=== PATIENT | female | born 1985 | race Caucasian/White ===

== ENCOUNTER 2017-09-17 23:12 | Observation (INO) | payer MEDICAID ==
--- NOTE | 2017-09-18 00:40 | C.PDOC ---
History Of Present Illness <Gayathri Vazquez - Last Filed: 09/18/17 06:43> <Nithin Murcia N - Last Filed: 09/18/17 06:54> 32 y/o female with no sig pmx c/o pain and swelling to mons pubis and to perirectal area x 4 days. no fever or chills. no prior hx of similar pain. ( Gayathri Vazquez) History Per: Patient History/Exam Limitations: no limitations Onset/Duration Of Symptoms: Days (4) Current Symptoms Are (Timing): Worse Quality Of Symptoms: Painful, Swollen. denies: Draining Severity: Moderate <Gayathri Vazquez - Last Filed: 09/18/17 06:43> <Nithin Murcia N - Last Filed: 09/18/17 06:54> Time Seen by Provider: 09/18/17 00:15 Chief Complaint (Nursing): Abnormal Skin Integrity Past Medical History Reviewed: Historical Data, Nursing Documentation, Vital Signs - Medical History PMH: No Chronic Diseases Family History: States: Unknown Family Hx - Social History Hx Alcohol Use: No Hx Substance Use: No <Gayathri Vazquez - Last Filed: 09/18/17 06:43> Vital Signs: Last Vital Signs Temp 97.9 F 09/18/17 06:46 Pulse 76 09/18/17 06:46 Resp 18 09/18/17 06:46 BP 102/70 09/18/17 06:46 Pulse Ox 96 09/18/17 06:46 Review Of Systems Constitutional: Negative for: Fever, Chills Gastrointestinal: Positive for: Rectal Pain. Negative for: Nausea, Vomiting, Abdominal Pain Genitourinary: Positive for: Pelvic Pain (mons pubis). Negative for: Dysuria Skin: Positive for: Other (early abscess mons) Neurological: Negative for: Weakness, Numbness <Gayathri Vazquez - Last Filed: 09/18/17 06:43> Physical Exam - Physical Exam Appears: Non-toxic, No Acute Distress Skin: Warm, Dry Head: Atraumatic, Normacephalic Gastrointestinal/Abdominal: Bowel Sounds, Soft, No Tenderness Rectal: Other (tender small perirectal abscess 5 oclock position, no discharge. ) Pelvic: Other (approx 4 cm x 5 cm warm indurated tender area with few satellite blisters, not fluctuant. ) Neurological/Psych: Oriented x3, Normal Speech, Normal Cognition <Gayathri Vazquez - Last Filed: 09/18/17 06:43> ED Course And Treatment - Laboratory Results Result Diagrams: 09/18/17 01:03 09/18/17 01:03 O2 Sat by Pulse Oximetry: 98 - CT Scan/US CT abdomen/pelvis Other Rad Studies (CT/US): Interpreted By Me, Read By Radiologist CT/US Interpretation: EXAM: CT Abdomen and Pelvis With Intravenous Contrast. EXAM DATE/TIME: 09/18/17 (1:46am). CLINICAL HISTORY: 32 year old female with abdominal pain. Evaluate perirectal abscess. TECHNIQUE: Axial computed tomography images of the abdomen and pelvis with intravenous contrast. All CT scans at this facility use one or more dose reduction techniques, viz.: automated exposure. control; ma/kV adjustment per patient size (including targeted exams where dose is matched to. indication; i.e. head); or iterative reconstruction technique. CONTRAST: 100 ml of Visipaque 320 administered intravenously. COMPARISON: No relevant prior studies available. FINDINGS: Lower thorax: No acute findings. No pleural effusions. ABDOMEN: Liver: Normal. No solid mass. Gallbladder and bile ducts: Normal. No calcified stones. No ductal dilatation. Pancreas: Normal. No ductal dilatation. Spleen: Normal. No splenomegaly. Adrenals: Normal. No mass. Kidneys and ureters: Normal. No hydronephrosis. Stomach and bowel: Normal. No bowel obstruction. No mucosal thickening. No definite perirectal abscess is observed. Appendix: No findings to suggest acute appendicitis. PELVIS: Bladder: Distended urinary bladder. No mass nor stones. Reproductive: Area of hypodensity (17 mm size) in the upper portion of the uterus (axial image #7). Small amount of air in the cervix. ABDOMEN and PELVIS: Intraperitoneal space: Normal. No free air. No significant fluid collection. Bones/joints: No acute fracture nor dislocation. Soft tissues: Unremarkable. Vasculature: Normal. No abdominal aortic aneurysm. Lymph nodes: Normal. No enlarged lymph nodes. IMPRESSION: No acute findings. Possible upper uterine body fibroid (17 mm size). No acute bowel pathology. No definite perirectal abscess is observed. <Gayathri Vazquez - Last Filed: 09/18/17 06:43> - Laboratory Results Result Diagrams: 09/18/17 01:03 09/18/17 01:03 <Nithin Murcia - Last Filed: 09/18/17 06:54> Medical Decision Making <Gayathri Vazquez - Last Filed: 09/18/17 06:43> <Nithin Murcia - Last Filed: 09/18/17 06:54> Medical Decision Makin:00am surgical attendant paged. Will evaluate patient bedside. discussed with Dr Medina, admit to his service, with surgical consult/ (Gayathri Vazquez) I agree with management, pt with new onset newly diagnosed diabetes. Pt with no anion gap but has elevated hyperglycemia. Infection- cellulitis as well as perianal abscess. admitted to medicine with surgery on consult. (Nithin Murcia) Disposition Discussed With : Kobe Medina - Disposition Disposition Time: 06:16 <Gayathri Vazquez - Last Filed: 09/18/17 06:43> <Nithin uMrcia - Last Filed: 09/18/17 06:54> - Disposition Disposition: HOSPITALIZED Condition: GOOD - Clinical Impression Clinical Impression: Fabiola-rectal abscess, Cellulitis of pubic region, Pelvic abscess, Diabetes mellitus, new onset
[2017-09-18 01:07] LABS: BASO # 0.1 K/uL (0.0-0.2); BASO % 0.7 % (0.0-2.0); EOS # 0.1 K/uL (0.0-0.7); EOS % 1.5 % (0.0-4.0); HEMOGLOBIN 13.4 g/dL (11.0-16.0); LYMPH # 2.8 K/uL (1.0-4.3); LYMPH % 36.5 % (20.0-40.0); MEAN CELL VOLUME 85.3 fL (81.0-99.0); MEAN CORPUSCULAR HEMOGLOBIN 30.5 pg (27.0-31.0); MEAN CORPUSCULAR HGB CONC 35.8 g/dL (33.0-37.0); MONO # 0.5 K/uL (0.0-0.8); NEUT # 4.2 K/uL (1.8-7.0); NEUT % 55.3 % (50.0-75.0); RBC 4.38 Mil/uL (3.80-5.20); RED CELL DISTRIBUTION WIDTH 12.6 % (11.5-14.5); WHITE BLOOD COUNT 7.6 K/uL (4.8-10.8)
[2017-09-18 01:24] LABS: ALB/GLOB RATIO 1.2 (1.0-2.1); ALT/SGPT 21 U/L (9-52); AST/SGOT 14 U/L (14-36); BLOOD UREA NITROGEN 11 mg/dL (7-17); CALCIUM 8.6 mg/dl (8.6-10.4); GFR AFRICAN-AMERICAN > 60; GFR NON-AFRICAN AMERICAN > 60
[2017-09-18] MEDS ORDERED: Oxycodone/Acetaminophen 5/325 mg Tab PO STA (01:52)
[2017-09-18 01:56] LABS: SQUAMOUS EPITHIAL 9 /hpf (0-5); URINE BILIRUBIN NEGATIVE (NEGATIVE); URINE BLOOD NEGATIVE (NEGATIVE); URINE CLARITY Hazy (Clear); URINE COLOR Straw (YELLOW); URINE GLUCOSE (UA) 3+ mg/dL (Normal); URINE LEUKOCYTE ESTERASE NEG Leu/uL (Negative); URINE PROTEIN NEGATIVE (NEGATIVE); URINE UROBILINOGEN NORMAL mg/dL (0.2-1.0)
[2017-09-18] MEDS ORDERED: Sodium Chloride 0.9% 1,000 ML IV SCH (02:00)
[2017-09-18] MEDS ORDERED: Sodium Chloride 0.9% 1,000 ML ONE (02:01)
[2017-09-18] MEDS ORDERED: Oxycodone/Acetaminophen 5/325 mg Tab ONE (02:01)
[2017-09-18] MEDS ORDERED: Sodium Chloride 0.9% 1,000 ML IV ONE ×2 (02:41→03:25)
[2017-09-18] MEDS ORDERED: Iodixanol 320 MG/ML 100 ML BOTTLE IV ONE (02:53)
[2017-09-18] MEDS ORDERED: Clindamycin 600mg/50ml D5W 600 MG/50 ML VIAL IVPB SCH ×2 (06:00)
[2017-09-18] MEDS ORDERED: Clindamycin 600mg/50ml D5W 600 MG/50 ML VIAL IVPB ONE (06:36)
[2017-09-18] MEDS ORDERED: Clindamycin 600mg/50ml NS 600 MG/50 ML BAG IVPB ONE (06:40)
[2017-09-18] MEDS: Lactated Ringer's 1,000 ML IV SCH ×2 (07:15→17:09)
[2017-09-18] MEDS ORDERED: Lactated Ringer's 1,000 ML ONE (07:16)
[2017-09-18] MEDS ORDERED: Tmp-Smz 800 mg-160 mg DS Tab PO SCH (08:00)
[2017-09-18] MEDS: (Novolin R) Insulin Human Regular 100 units/ml vial SC SCH ×4 (08:08→22:04)
[2017-09-18] MEDS ORDERED: (Novolin R) Insulin Human Regular 100 units/ml vial ONE ×3 (08:08→11:50)
--- NOTE | 2017-09-18 08:22 | CP.PCM.HP ---
<Kenton Buck - Last Filed: 09/18/17 09:29> History of Present Illness - History of Present Illness History of Present Illness: 32 year old [place] female with no reported past medical history presents to the ED complaining of pubic and perirectal pain started 4 days ago. Patient noticed a small pimple in her rectal region about 1 week ago. She did not think much of it and it eventually bursted two days after. Patient began to notice another pimple start to form in the pubic region with the similar size. Both rectal and pubic regions started to become painful 4 days ago. Patient does not take any medication for the pain. No prior history of the same. An hour prior to coming to the ED, patient had a large [place] all by herself. Patient denies having fever, chills, dizziness, shortness of breath, chest pain, nausea , vomiting, diarrhea, or urinary complaints. Rodney Jaun: [phone] PMD: none PMHx: denies PSHx: none Hospitalization: none Allergy: NKDA Social Hx: denies tobacco, alcohol or other drug use. Leaves at home with and parents. Currently unempolyed Family Hx: non-contributory Home meds: none Present on Admission - Present on Admission Any Indicators Present on Admission: No Review of Systems - Review of Systems All systems: reviewed and no additional remarkable complaints except - Constitutional Constitutional: As Per HPI. absent: Anorexia, Chills, Fatigue, Fever - EENT Eyes: As Per HPI. absent: Blind Spots, Blurred Vision, Decreased Night Vision Ears: As Per HPI. absent: Decreased Hearing, Disequilibrium, Dizziness Nose/Mouth/Throat: As Per HPI. absent: Epistaxis, Nasal Congestion, Nasal Obstruction - Breasts Breasts: As Per HPI - Cardiovascular Cardiovascular: As Per HPI. absent: Chest Pain, Chest Pain at Rest, Dyspnea, Edema, Leg Edema, Palpitations - Respiratory Respiratory: As Per HPI. absent: Cough, Dyspnea, Wheezing - Gastrointestinal Gastrointestinal: As Per HPI. absent: Abdominal Pain, Nausea, Vomiting - Genitourinary Genitourinary: As Per HPI. absent: Difficulty Urinating, Dysuria, Hematuria - Reproductive: Female Reproductive:Female: As Per HPI - Menstruation Menstruation: As Per HPI - Musculoskeletal Musculoskeletal: As Per HPI - Integumentary Integumentary: As Per HPI, Furuncle (pubic and rectal ), Swelling - Neurological Neurological: As Per HPI. absent: Dizziness, Numbness, Syncope, Tingling - Psychiatric Psychiatric: As Per HPI. absent: Anxiety, Confusion, Depression - Endocrine Endocrine: As Per HPI. absent: Polydipsia, Polyphagia, Polyuria - Hematologic/Lymphatic Hematologic: As Per HPI Past Patient History - Past Social History Smoking Status: Never Smoked - PSYCHIATRIC Hx Substance Use: No - SURGICAL HISTORY Hx Surgeries: No Meds Allergies/Adverse Reactions: Allergies Allergy/AdvReac Type Severity Reaction Status Date / Time No Known Allergies Allergy Verified 09/17/17 23:52 Physical Exam - Constitutional Appears: Well, Non-toxic, No Acute Distress - Head Exam Head Exam: ATRAUMATIC, NORMOCEPHALIC - Eye Exam Eye Exam: EOMI, Normal appearance, PERRL Pupil Exam: NORMAL ACCOMODATION - ENT Exam ENT Exam: Mucous Membranes Moist, Normal Exam - Neck Exam Neck exam: Positive for: Normal Inspection - Respiratory Exam Respiratory Exam: Clear to Auscultation Bilateral, NORMAL BREATHING PATTERN. absent: Rhonchi, Wheezes, Respiratory Distress - Cardiovascular Exam Cardiovascular Exam: REGULAR RHYTHM, +S1, +S2. absent: Diastolic murmur, Systolic Murmur - GI/Abdominal Exam GI & Abdominal Exam: Normal Bowel Sounds, Soft. absent: Tenderness - Rectal Exam Additional comments: one tender furuncle located at 5 o'clock rectal position, no open lesion, no active drainage, tender to the touch - Exam External exam: Lesions (furuncle located at mons pubis region with an area of erythema and induaration, tenerdness to palpation, no active drainage) - Extremities Exam Extremities exam: Positive for: normal inspection - Neurological Exam Neurological exam: Alert, CN II-XII Intact, Oriented x3, Reflexes Normal - Psychiatric Exam Psychiatric exam: Normal Affect, Normal Mood - Skin Skin Exam: Warm Results - Vital Signs Recent Vital Signs: Last Vital Signs Temp 97.9 F 09/18/17 06:46 Pulse 76 09/18/17 06:46 Resp 18 09/18/17 06:46 BP 102/70 09/18/17 06:46 Pulse Ox 96 09/18/17 06:46 - Labs Result Diagrams: 09/18/17 01:03 09/18/17 01:03 Labs: Laboratory Results - last 24 hr 09/18/17 09/18/17 09/18/17 01:03 01:03 01:40 WBC 7.6 RBC 4.38 Hgb 13.4 Hct 37.3 MCV 85.3 MCH 30.5 MCHC 35.8 RDW 12.6 Plt Count 278 MPV 8.0 Neut % (Auto) 55.3 Lymph % (Auto) 36.5 [place] % (Auto) 6.0 Eos % (Auto) 1.5 Baso % (Auto) 0.7 Neut # (Auto) 4.2 Lymph # (Auto) 2.8 [place] # (Auto) 0.5 Eos # (Auto) 0.1 Baso # (Auto) 0.1 Sodium 134 Potassium 4.0 Chloride 98 Carbon Dioxide 22 Anion Gap 18 BUN 11 Creatinine 0.5 L Est GFR ( Amer) > 60 Est GFR (Non-Af Amer) > 60 POC Glucose (mg/dL) Random Glucose 506 H* Calcium 8.6 Total Bilirubin 0.4 AST 14 ALT 21 Alkaline Phosphatase 86 Total Protein 7.2 Albumin 4.0 Globulin 3.2 Albumin/Globulin Ratio 1.2 Urine Color Straw Urine Clarity Hazy Urine pH 6.0 Ur Specific [place] 1.028 Urine Protein Negative Urine Glucose (UA) 3+ H Urine Ketones Negative Urine Blood Negative Urine Nitrate Negative Urine Bilirubin Negative Urine Urobilinogen Normal Ur Leukocyte Esterase Neg Urine WBC (Auto) 13 H Urine RBC (Auto) 2 Ur Squamous Epith Cells 9 H 09/18/17 09/18/17 09/18/17 03:04 04:32 07:58 WBC RBC Hgb Hct MCV MCH MCHC RDW Plt Count MPV Neut % (Auto) Lymph % (Auto) [place] % (Auto) Eos % (Auto) Baso % (Auto) Neut # (Auto) Lymph # (Auto) [place] # (Auto) Eos # (Auto) Baso # (Auto) Sodium Potassium Chloride Carbon Dioxide Anion Gap BUN Creatinine Est GFR ( Amer) Est GFR (Non-Af Amer) POC Glucose (mg/dL) 397 H 338 H 270 H Random Glucose Calcium Total Bilirubin AST ALT Alkaline Phosphatase Total Protein Albumin Globulin Albumin/Globulin Ratio Urine Color Urine Clarity Urine pH Ur Specific [place] Urine Protein Urine Glucose (UA) Urine Ketones Urine Blood Urine Nitrate Urine Bilirubin Urine Urobilinogen Ur Leukocyte Esterase Urine WBC (Auto) Urine RBC (Auto) Ur Squamous Epith Cells Assessment & Plan - Assessment and Plan (Free Text) Assessment: Perirectal and mons pubis abscess/cellulitis -No leukocytosis, afebrile -Bactrim 400mg IV Q12h -Warm compress -CT Abd shows no acute findings. Possible upper uterine body fibroid. No acute bowel pathology. No definite perirectal abscess is observed -Follow up preop CXR, EKG, and Coag -Patient has Detsky's criteria point of 0, class I with 6% risk of cardiovascular complications after non cardiac surgery -Surgery consulted, planned for I&D this morning -NPO -LR @ 100ml/hr Type 2 Diabetes -FS 500 on ED arrival -Insulin sliding scale -FS Q6 -Follow up hemoglobin A1c, urine microalbumin, creatitine -Hypoglycemia protocol Prophylactic measure -SCD, C/I VTE due to planned surgical procedure -Florastor 250mg Q12 <Jake Doll - Last Filed: 09/18/17 20:05> Results - Vital Signs Recent Vital Signs: Last Vital Signs Temp 98.1 F 09/18/17 15:12 Pulse 77 09/18/17 15:12 Resp 20 09/18/17 15:12 BP 101/69 09/18/17 15:12 Pulse Ox 98 09/18/17 15:12 - Labs Result Diagrams: 09/18/17 01:03 09/18/17 01:03 Labs: Laboratory Results - last 24 hr 09/18/17 09/18/17 09/18/17 01:03 01:03 01:40 WBC 7.6 RBC 4.38 Hgb 13.4 Hct 37.3 MCV 85.3 MCH 30.5 MCHC 35.8 RDW 12.6 Plt Count 278 MPV 8.0 Neut % (Auto) 55.3 Lymph % (Auto) 36.5 [place] % (Auto) 6.0 Eos % (Auto) 1.5 Baso % (Auto) 0.7 Neut # (Auto) 4.2 Lymph # (Auto) 2.8 [place] # (Auto) 0.5 Eos # (Auto) 0.1 Baso # (Auto) 0.1 PT INR APTT Sodium 134 Potassium 4.0 Chloride 98 Carbon Dioxide 22 Anion Gap 18 BUN 11 Creatinine 0.5 L Est GFR ( Amer) > 60 Est GFR (Non-Af Amer) > 60 POC Glucose (mg/dL) Random Glucose 506 H* Calcium 8.6 Total Bilirubin 0.4 AST 14 ALT 21 Alkaline Phosphatase 86 Total Protein 7.2 Albumin 4.0 Globulin 3.2 Albumin/Globulin Ratio 1.2 Urine Color Straw Urine Clarity Hazy Urine pH 6.0 Ur Specific [place] 1.028 Urine Protein Negative Urine Glucose (UA) 3+ H Urine Ketones Negative Urine Blood Negative Urine Nitrate Negative Urine Bilirubin Negative Urine Urobilinogen Normal Ur Leukocyte Esterase Neg Urine WBC (Auto) 13 H Urine RBC (Auto) 2 Ur Squamous Epith Cells 9 H 09/18/17 09/18/17 09/18/17 03:04 04:32 07:58 WBC RBC Hgb Hct MCV MCH MCHC RDW Plt Count MPV Neut % (Auto) Lymph % (Auto) [place] % (Auto) Eos % (Auto) Baso % (Auto) Neut # (Auto) Lymph # (Auto) [place] # (Auto) Eos # (Auto) Baso # (Auto) PT INR APTT Sodium Potassium Chloride Carbon Dioxide Anion Gap BUN Creatinine Est GFR ( Amer) Est GFR (Non-Af Amer) POC Glucose (mg/dL) 397 H 338 H 270 H Random Glucose Calcium Total Bilirubin AST ALT Alkaline Phosphatase Total Protein Albumin Globulin Albumin/Globulin Ratio Urine Color Urine Clarity Urine pH Ur Specific [place] Urine Protein Urine Glucose (UA) Urine Ketones Urine Blood Urine Nitrate Urine Bilirubin Urine Urobilinogen Ur Leukocyte Esterase Urine WBC (Auto) Urine RBC (Auto) Ur Squamous Epith Cells 09/18/17 09/18/17 09/18/17 09:24 11:40 16:10 WBC RBC Hgb Hct MCV MCH MCHC RDW Plt Count MPV Neut % (Auto) Lymph % (Auto) [place] % (Auto) Eos % (Auto) Baso % (Auto) Neut # (Auto) Lymph # (Auto) [place] # (Auto) Eos # (Auto) Baso # (Auto) PT 10.9 INR 1.0 APTT 29 Sodium Potassium Chloride Carbon Dioxide Anion Gap BUN Creatinine Est GFR ( Amer) Est GFR (Non-Af Amer) POC Glucose (mg/dL) 210 H 154 H Random Glucose Calcium Total Bilirubin AST ALT Alkaline Phosphatase Total Protein Albumin Globulin Albumin/Globulin Ratio Urine Color Urine Clarity Urine pH Ur Specific [place] Urine Protein Urine Glucose (UA) Urine Ketones Urine Blood Urine Nitrate Urine Bilirubin Urine Urobilinogen Ur Leukocyte Esterase Urine WBC (Auto) Urine RBC (Auto) Ur Squamous Epith Cells Attending/Attestation - Attestation I have personally seen and examined this patient.: Yes I have fully participated in the care of the patient.: Yes I have reviewed all pertinent clinical information: Yes Notes (Text): 09/18/17 20:04 Patient was seen and examined in ER Bed #3 shortly after resident. History, Physical, Assessment and Plan were gone over with the resident. Jake Doll D.O.
--- NOTE | 2017-09-18 09:02 | CP.PCM.CON ---
History of Present Illness - History of Present Illness History of Present Illness: Surgery 32F w no PMH came with perianal pain started 1 week ago. Denies drainage, hematochezia, hemorrhoids. Pt also reports swelling and redness around the pubic area. There was samll boil and felt better when it drained abscess. It closed up again and still has pain and redness. Patient does not take any medication for the pain. No prior history of the same. An hour prior to coming to the ED, patient had a large [place] all by herself. Patient denies having fever, chills, dizziness, shortness of breath, chest pain, nausea , vomiting, diarrhea, or urinary complaints. Pt was also found to have hyperglycemic. PMD: none PMHx: denies PSHx: none Social Hx: denies tobacco, alcohol or other drug use. Leaves at home with and parents. Currently unempolyed Family Hx: non-contributory Home meds: none Review of Systems - Review of Systems Review of Systems: See HPI Past Patient History - Past Social History Smoking Status: Never Smoked - PSYCHIATRIC Hx Substance Use: No - SURGICAL HISTORY Hx Surgeries: No Meds Allergies/Adverse Reactions: Allergies Allergy/AdvReac Type Severity Reaction Status Date / Time No Known Allergies Allergy Verified 09/17/17 23:52 - Medications Medications: Current Medications Lactated Ringer's (Lactated Ringer's) 1,000 mls @ 100 mls/hr IV .Q10H [facility] Last Admin: 09/18/17 07:15 Dose: 100 mls/hr Insulin Human Regular (Novolin R) 0 unit SC ACHS LAURA PRN Reason: Protocol Last Admin: 09/18/17 08:08 Dose: 4 units Trimethoprim/Sulfamethoxazole (Bactrim Ds Tab) 1 tab PO Q12H LAURA PRN Reason: Protocol Last Admin: 09/18/17 08:03 Dose: Not Given Physical Exam - Constitutional Appears: No Acute Distress - Head Exam Head Exam: ATRAUMATIC, NORMAL INSPECTION, NORMOCEPHALIC - Eye Exam Eye Exam: EOMI, Normal appearance, PERRL Pupil Exam: NORMAL ACCOMODATION, PERRL - ENT Exam ENT Exam: Mucous Membranes Moist, Normal Exam - Neck Exam Neck exam: Positive for: Normal Inspection - Respiratory Exam Respiratory Exam: Clear to Auscultation Bilateral, NORMAL BREATHING PATTERN - Cardiovascular Exam Cardiovascular Exam: REGULAR RHYTHM - GI/Abdominal Exam GI & Abdominal Exam: Normal Bowel Sounds, Soft. absent: Distended, Firm, Guarding, Hernia, Tenderness Additional comments: muns pubis area cellulitis: erythema. 40c75ms. TTP. punctate. no drainage. - Rectal Exam Rectal Exam: absent: Black Stool, Bloody Stool, Hemorrhoids, NORMAL INSPECTION Additional comments: L perianal area 1x2cm lesion. indurated. No rectal mass, normal tone. erythema - Extremities Exam Extremities exam: Positive for: normal inspection - Back Exam Back exam: NORMAL INSPECTION - Neurological Exam Neurological exam: Alert, CN II-XII Intact, Normal Gait, Oriented x3, Reflexes Normal - Psychiatric Exam Psychiatric exam: Normal Affect, Normal Mood - Skin Skin Exam: Dry, Intact, Normal Color, Warm Results - Vital Signs Recent Vital Signs: Last Vital Signs Temp 98.5 F 09/18/17 08:14 Pulse 73 09/18/17 08:14 Resp 20 09/18/17 08:14 BP 109/73 09/18/17 08:14 Pulse Ox 98 09/18/17 08:14 - Labs Result Diagrams: 09/18/17 01:03 09/18/17 01:03 Labs: Laboratory Results - last 24 hr 09/18/17 09/18/17 09/18/17 01:03 01:03 01:40 WBC 7.6 RBC 4.38 Hgb 13.4 Hct 37.3 MCV 85.3 MCH 30.5 MCHC 35.8 RDW 12.6 Plt Count 278 MPV 8.0 Neut % (Auto) 55.3 Lymph % (Auto) 36.5 [place] % (Auto) 6.0 Eos % (Auto) 1.5 Baso % (Auto) 0.7 Neut # (Auto) 4.2 Lymph # (Auto) 2.8 [place] # (Auto) 0.5 Eos # (Auto) 0.1 Baso # (Auto) 0.1 Sodium 134 Potassium 4.0 Chloride 98 Carbon Dioxide 22 Anion Gap 18 BUN 11 Creatinine 0.5 L Est GFR ( Amer) > 60 Est GFR (Non-Af Amer) > 60 POC Glucose (mg/dL) Random Glucose 506 H* Calcium 8.6 Total Bilirubin 0.4 AST 14 ALT 21 Alkaline Phosphatase 86 Total Protein 7.2 Albumin 4.0 Globulin 3.2 Albumin/Globulin Ratio 1.2 Urine Color Straw Urine Clarity Hazy Urine pH 6.0 Ur Specific [place] 1.028 Urine Protein Negative Urine Glucose (UA) 3+ H Urine Ketones Negative Urine Blood Negative Urine Nitrate Negative Urine Bilirubin Negative Urine Urobilinogen Normal Ur Leukocyte Esterase Neg Urine WBC (Auto) 13 H Urine RBC (Auto) 2 Ur Squamous Epith Cells 9 H 09/18/17 09/18/17 09/18/17 03:04 04:32 07:58 WBC RBC Hgb Hct MCV MCH MCHC RDW Plt Count MPV Neut % (Auto) Lymph % (Auto) [place] % (Auto) Eos % (Auto) Baso % (Auto) Neut # (Auto) Lymph # (Auto) [place] # (Auto) Eos # (Auto) Baso # (Auto) Sodium Potassium Chloride Carbon Dioxide Anion Gap BUN Creatinine Est GFR ( Amer) Est GFR (Non-Af Amer) POC Glucose (mg/dL) 397 H 338 H 270 H Random Glucose Calcium Total Bilirubin AST ALT Alkaline Phosphatase Total Protein Albumin Globulin Albumin/Globulin Ratio Urine Color Urine Clarity Urine pH Ur Specific [place] Urine Protein Urine Glucose (UA) Urine Ketones Urine Blood Urine Nitrate Urine Bilirubin Urine Urobilinogen Ur Leukocyte Esterase Urine WBC (Auto) Urine RBC (Auto) Ur Squamous Epith Cells Assessment & Plan - Assessment and Plan (Free Text) Assessment: pelvis cellutitis and L perianal asbcess -Warm compress -NPO -ABX -IVF -Possible I &D Will HI Garcia
[2017-09-18] MEDS ORDERED: Glucagon Recombinant 1 mg Inj IM PRN (09:11)
[2017-09-18] MEDS ORDERED: Dextrose 50% SYRINGE Inj (50 ml) IVP PRN (09:11)
[2017-09-18 09:43] LABS: PROTHROMBIN TIME 10.9 SECONDS (9.7-12.2)
[2017-09-18] MEDS: Saccharomyces Boulardi 250 mg Cap PO SCH ×2 (10:10→21:37)
--- NOTE | 2017-09-18 13:42 | RAD ---
HISTORY: preop for surgery COMPARISON: No prior. TECHNIQUE: Chest PA and lateral FINDINGS: LUNGS: No active pulmonary disease. PLEURA: No significant pleural effusion identified. No pneumothorax apparent. CARDIOVASCULAR: Normal. OSSEOUS STRUCTURES: No significant abnormalities. VISUALIZED UPPER ABDOMEN: Normal. OTHER FINDINGS: None. IMPRESSION: No active disease.
--- NOTE | 2017-09-18 14:51 | CT ---
PROCEDURE: CT Abdomen and Pelvis with contrast HISTORY: eval kerry-rectal abscess COMPARISON: None. TECHNIQUE: Contrast dose: 100 mL Visipaque 320 Radiation dose: Total exam DLP = 282.81 mGy-cm. This CT exam was performed using one or more of the following dose reduction techniques: Automated exposure control, adjustment of the mA and/or kV according to patient size, and/or use of iterative reconstruction technique. FINDINGS: LOWER THORAX: Unremarkable. LIVER: Unremarkable. No gross lesion or ductal dilatation. GALLBLADDER AND BILE DUCTS: Unremarkable. PANCREAS: Unremarkable. No gross lesion or ductal dilatation. SPLEEN: Unremarkable. ADRENALS: Unremarkable. No mass. KIDNEYS AND URETERS: Unremarkable. No hydronephrosis. No solid mass. VASCULATURE: Unremarkable. No aortic aneurysm. BOWEL: Unremarkable. No obstruction. No gross mural thickening. APPENDIX: Normal appendix. PERITONEUM: Unremarkable. No free fluid. No free air. LYMPH NODES: Unremarkable. No enlarged lymph nodes. BLADDER: Unremarkable. REPRODUCTIVE: Normal uterus BONES: No acute fracture. OTHER FINDINGS: Focal cutaneous thickening along the medial left gluteal region just inferior to the anal rectal complex may reflect cellulitis. This is best demonstrated on series 3, image 200 through 205 and on series 601, image 8439. There is no fistula or abscess evident. IMPRESSION: Possible cellulitis medial left left gluteal region just inferior to the anal rectal complex. No abscess or fistula evident. Otherwise unremarkable examination. Preliminary interpretation of this examination was reported by [facility] at 5:56 a.m. on 09/18/2017. There is concurrence of this report with the preliminary interpretation.
[2017-09-18 16:13] VITALS: RESP 20
[2017-09-18] MEDS ORDERED: TRIMETHOPRIM IVPB SCH (19:00)
[2017-09-18] MEDS ORDERED: SULFAMETHOXAZOLE IVPB SCH (19:00)
[2017-09-18] MEDS ORDERED: DEXTROSE 5% IVPB SCH (19:00)
[2017-09-18] MEDS ORDERED: WATER IVPB SCH (19:00)
[2017-09-18] MEDS ORDERED: DiphenhydrAMINE 50 mg/ml Inj IVP ONE (20:00)
[2017-09-18] MEDS: Sulfamethoxazole/Trimethoprim 200 MG in Dextrose 5% In Water 250 ML IVPB SCH (20:47)
[2017-09-19] MEDS: Lactated Ringer's 1,000 ML IV SCH ×2 (01:51→13:34)
[2017-09-19] MEDS: Sulfamethoxazole/Trimethoprim 200 MG in Dextrose 5% In Water 250 ML IVPB SCH ×2 (02:06→09:20)
[2017-09-19] MEDS: (Novolin R) Insulin Human Regular 100 units/ml vial SC SCH ×2 (08:12→12:31)
[2017-09-19 08:30] LABS: BASO % 0.2 % (0.0-2.0); EOS # 0.1 K/uL (0.0-0.7); EOS % 1.9 % (0.0-4.0); HEMOGLOBIN 13.8 g/dL (11.0-16.0); LYMPH # 2.5 K/uL (1.0-4.3); LYMPH % 36.8 % (20.0-40.0); MEAN CELL VOLUME 84.8 fL (81.0-99.0); MEAN CORPUSCULAR HGB CONC 35.3 g/dL (33.0-37.0); MEAN PLATELET VOLUME 8.1 fL (7.2-11.7); MONO # 0.4 K/uL (0.0-0.8); MONO % 5.3 % (0.0-10.0); NEUT # 3.7 K/uL (1.8-7.0); NEUT % 55.8 % (50.0-75.0); RBC 4.59 Mil/uL (3.80-5.20); RED CELL DISTRIBUTION WIDTH 12.7 % (11.5-14.5); WHITE BLOOD COUNT 6.7 K/uL (4.8-10.8)
[2017-09-19 08:34] VITALS: BP 101/68; PULSE 74; TEMP 98.2; O2SAT 97
[2017-09-19 08:49] LABS: ALB/GLOB RATIO 1.3 (1.0-2.1); ALBUMIN 3.6 g/dL (3.5-5.0); ALT/SGPT 20 U/L (9-52); AST/SGOT 16 U/L (14-36); BLOOD UREA NITROGEN 6 mg/dL (7-17); CALCIUM 9.1 mg/dl (8.6-10.4); GFR AFRICAN-AMERICAN > 60; GFR NON-AFRICAN AMERICAN > 60; HDL CHOLESTEROL 34 mg/dL (30-70)
[2017-09-19 09:00] LABS: LDL CHOLESTEROL 101 mg/dL (0-129)
--- NOTE | 2017-09-19 09:10 | CP.PCM.DIS ---
<HeberKenton - Last Filed: 09/19/17 14:52> Provider - Provider Date of Admission: 09/18/17 06:13 Attending physician: Kobe Medina MD Primary care physician: Dr. Salazar Consults: Surgery Dr. Garcia Time Spent in preparation of Discharge (in minutes): 40 Diagnosis - Discharge Diagnosis (1) Cellulitis of pubic region Status: Resolved (2) Diabetes mellitus, new onset Status: Chronic (3) Hypertriglyceridemia Status: Chronic Hospital Course - Lab Results Lab Results: Micro Results 09/18/17 07:59 Nose Gram Stain - Final Most Recent Lab Values WBC 6.7 K/uL (4.8-10.8) 09/19/17 08:24 RBC 4.59 Mil/uL (3.80-5.20) 09/19/17 08:24 Hgb 13.8 g/dL (11.0-16.0) 09/19/17 08:24 Hct 39.0 % (34.0-47.0) 09/19/17 08:24 MCV 84.8 fL (81.0-99.0) 09/19/17 08:24 MCH 30.0 pg (27.0-31.0) 09/19/17 08:24 MCHC 35.3 g/dL (33.0-37.0) 09/19/17 08:24 RDW 12.7 % (11.5-14.5) 09/19/17 08:24 Plt Count 287 K/uL (130-400) 09/19/17 08:24 MPV 8.1 fL (7.2-11.7) 09/19/17 08:24 Neut % (Auto) 55.8 % (50.0-75.0) 09/19/17 08:24 Lymph % (Auto) 36.8 % (20.0-40.0) 09/19/17 08:24 [place] % (Auto) 5.3 % (0.0-10.0) 09/19/17 08:24 Eos % (Auto) 1.9 % (0.0-4.0) 09/19/17 08:24 Baso % (Auto) 0.2 % (0.0-2.0) 09/19/17 08:24 Neut # (Auto) 3.7 K/uL (1.8-7.0) 09/19/17 08:24 Lymph # (Auto) 2.5 K/uL (1.0-4.3) 09/19/17 08:24 [place] # (Auto) 0.4 K/uL (0.0-0.8) 09/19/17 08:24 Eos # (Auto) 0.1 K/uL (0.0-0.7) 09/19/17 08:24 Baso # (Auto) 0.0 K/uL (0.0-0.2) 09/19/17 08:24 PT 10.9 SECONDS (9.7-12.2) 09/18/17 09:24 INR 1.0 09/18/17 09:24 APTT 29 SECONDS (21-34) 09/18/17 09:24 Sodium 135 mmol/L (132-148) 09/19/17 08:24 Potassium 4.0 mmol/L (3.6-5.2) 09/19/17 08:24 Chloride 99 mmol/L (98-107) 09/19/17 08:24 Carbon Dioxide 26 mmol/L (22-30) 09/19/17 08:24 Anion Gap 14 (10-20) 09/19/17 08:24 BUN 6 mg/dL (7-17) L 09/19/17 08:24 Creatinine 0.6 mg/dL (0.7-1.2) L 09/19/17 08:24 Est GFR ( Amer) > 60 09/19/17 08:24 Est GFR (Non-Af Amer) > 60 09/19/17 08:24 POC Glucose (mg/dL) 264 mg/dL (65-110) H 09/19/17 06:27 Random Glucose 253 mg/dL (65-105) H 09/19/17 08:24 Calcium 9.1 mg/dl (8.6-10.4) 09/19/17 08:24 Total Bilirubin 0.6 mg/dL (0.2-1.3) 09/19/17 08:24 AST 16 U/L (14-36) 09/19/17 08:24 ALT 20 U/L (9-52) 09/19/17 08:24 Alkaline Phosphatase 48 U/L (38-126) 09/19/17 08:24 Total Protein 6.4 g/dL (6.3-8.3) 09/19/17 08:24 Albumin 3.6 g/dL (3.5-5.0) 09/19/17 08:24 Globulin 2.8 gm/dL (2.2-3.9) 09/19/17 08:24 Albumin/Globulin Ratio 1.3 (1.0-2.1) 09/19/17 08:24 Triglycerides 231 mg/dL (0-149) H 09/19/17 08:24 Cholesterol 159 mg/dL (0-199) 09/19/17 08:24 LDL Cholesterol Direct 101 mg/dL (0-129) 09/19/17 08:24 HDL Cholesterol 34 mg/dL (30-70) 09/19/17 08:24 TSH 3rd Generation 2.72 mIU/L (0.46-4.68) 09/18/17 19:42 Urine Color Straw (YELLOW) 09/18/17 01:40 Urine Clarity Hazy (Clear) 09/18/17 01:40 Urine pH 6.0 (5.0-8.0) 09/18/17 01:40 Ur Specific Willis 1.028 (1.003-1.030) 09/18/17 01:40 Urine Protein Negative mg/dL (NEGATIVE) 09/18/17 01:40 Urine Glucose (UA) 3+ mg/dL (Normal) H 09/18/17 01:40 Urine Ketones Negative mg/dL (NEGATIVE) 09/18/17 01:40 Urine Blood Negative (NEGATIVE) 09/18/17 01:40 Urine Nitrate Negative (NEGATIVE) 09/18/17 01:40 Urine Bilirubin Negative (NEGATIVE) 09/18/17 01:40 Urine Urobilinogen Normal mg/dL (0.2-1.0) 09/18/17 01:40 Ur Leukocyte Esterase Neg Trey/uL (Negative) 09/18/17 01:40 Urine WBC (Auto) 13 /hpf (0-5) H 09/18/17 01:40 Urine RBC (Auto) 2 /hpf (0-3) 09/18/17 01:40 Ur Squamous Epith Cells 9 /hpf (0-5) H 09/18/17 01:40 Ur Random Creatinine 68.6 mg/dL 09/18/17 22:32 - Hospital Course Hospital Course: 32 year old female with no reported past medical history presents to the ED complaining of pubic and perirectal pain started 4 days ago. Patient noticed a small pimple in her rectal region about 1 week ago. She did not think much of it and it eventually bursted two days after. Patient began to notice another pimple start to form in the pubic region with the similar size. Both rectal and pubic regions started to become painful 4 days ago. Patient does not take any medication for the pain. No prior history of the same. An hour prior to coming to the ED, patient had a large [place] all by herself. Patient denies having fever, chills, dizziness, shortness of breath, chest pain, nausea , vomiting, diarrhea, or urinary complaints. In the ED patient received a dose of Clindamycin and surgical consulted for an evaluation of abscess. Patient was found to have random glucose of 506. CT abd/pelvis shows no acute findings. Possible upper uterine body fibroid (17 mm size). No acute bowel pathology. Upon hospital admission patient was given Bactrim IV. No surgical intervention was indicated. Patient's pain was under controlled. Overnight patient did not develop fever, chills, nausea, vomiting or worsening pain. Patient is aware of her new diagnosis of diabetes and agreed to start taking Metformin and follow up with a PMD of choice. Patient will also take a course of PO Bactrim as discharged from the hospital. Patient agreed and understood with the treatment plan. Above is a brief summary of hospital course, please refer to medical records for further details. - Date & Time of H&P Date of H&P: 09/18/17 Time of H&P: 08:06 Discharge Exam - Additional Findings Additional findings: - Constitutional Appears: Well, Non-toxic, No Acute Distress - Head Exam Head Exam: ATRAUMATIC, NORMOCEPHALIC - Eye Exam Eye Exam: EOMI, Normal appearance, PERRL Pupil Exam: NORMAL ACCOMODATION - ENT Exam ENT Exam: Mucous Membranes Moist, Normal Exam - Neck Exam Neck exam: Positive for: Normal Inspection - Respiratory Exam Respiratory Exam: Clear to Auscultation Bilateral, NORMAL BREATHING PATTERN. absent: Rhonchi, Wheezes, Respiratory Distress - Cardiovascular Exam Cardiovascular Exam: REGULAR RHYTHM, +S1, +S2. absent: Diastolic murmur, Systolic Murmur - GI/Abdominal Exam GI & Abdominal Exam: Normal Bowel Sounds, Soft. absent: Tenderness - Rectal Exam Additional comments: one tender furuncle located at 5 o'clock rectal position, no open lesion, no active drainage, tender to the touch, improving - Exam External exam: Lesions (furuncle located at mons pubis region with an area of erythema and induaration, tenerdness to palpation, no active drainage) - Extremities Exam Extremities exam: Positive for: normal inspection - Neurological Exam Neurological exam: Alert, CN II-XII Intact, Oriented x3, Reflexes Normal - Psychiatric Exam Psychiatric exam: Normal Affect, Normal Mood Discharge Plan - Discharge Medications Prescriptions: Atorvastatin [Lipitor] 10 mg PO DIN #30 tab Lisinopril 2.5 mg PO DAILY #30 tablet metFORMIN [glucOPHAGE] 500 mg PO BID #60 tab Saccharomyces Boulardi [Florastor] 250 mg PO BID #74 cap Sulfamethoxazole/Trimethoprim [Bactrim Ds Tablet] 1 each PO BID #14 tablet - Follow Up Plan Condition: GOOD Disposition: HOME/ ROUTINE Instructions: Saccharomyces boulardii, Low Blood Sugar, Adult (DC), Diabetes Diet , Diabetes Type 2 (DC), Hemoglobin A1C Tests, Atorvastatin, Sulfamethoxazole and Trimethoprim, Lisinopril, Metformin, Diabetic Meal Planning , Diabetes and Diet, Cellulitis (DC), Cellulitis (GEN), Abscess (GEN) Additional Instructions: Schedule follow up appointment with Surgeon Dr. Garcia during the week of . His office number is [phone]. Schedule appointment with Dr. Nia Salazar. She will be your primary care physician who will coordinate your health care. Call her office at [phone] to make an appointment to take place in 14 days. You may also schedule appointment with [facility] [phone] or [facility] ([phone]) only if Dr. Melendez does not take your insurance. Drink at least 3 liters of water a day Have 3 healthy low carbohydrate meals a day Get 30minutes of cardiovascular exercise a day Take care Referrals: [facility] at [facility] [Outside] Pedro Garcia MD [Staff Provider] - 1 Week Nia Salazar MD [Staff Provider] - 1 Week <Jake Doll - Last Filed: 09/19/17 18:20> Provider - Provider Date of Admission: 09/18/17 06:13 Attending physician: Kobe Medina MD Hospital Course - Lab Results Lab Results: Micro Results 09/18/17 07:59 Nose Gram Stain - Final 09/18/17 07:59 Nose Nose Culture - Preliminary Gram Positive Cocci Most Recent Lab Values WBC 6.7 K/uL (4.8-10.8) 09/19/17 08:24 RBC 4.59 Mil/uL (3.80-5.20) 09/19/17 08:24 Hgb 13.8 g/dL (11.0-16.0) 09/19/17 08:24 Hct 39.0 % (34.0-47.0) 09/19/17 08:24 MCV 84.8 fL (81.0-99.0) 09/19/17 08:24 MCH 30.0 pg (27.0-31.0) 09/19/17 08:24 MCHC 35.3 g/dL (33.0-37.0) 09/19/17 08:24 RDW 12.7 % (11.5-14.5) 09/19/17 08:24 Plt Count 287 K/uL (130-400) 09/19/17 08:24 MPV 8.1 fL (7.2-11.7) 09/19/17 08:24 Neut % (Auto) 55.8 % (50.0-75.0) 09/19/17 08:24 Lymph % (Auto) 36.8 % (20.0-40.0) 09/19/17 08:24 [place] % (Auto) 5.3 % (0.0-10.0) 09/19/17 08:24 Eos % (Auto) 1.9 % (0.0-4.0) 09/19/17 08:24 Baso % (Auto) 0.2 % (0.0-2.0) 09/19/17 08:24 Neut # (Auto) 3.7 K/uL (1.8-7.0) 09/19/17 08:24 Lymph # (Auto) 2.5 K/uL (1.0-4.3) 09/19/17 08:24 [place] # (Auto) 0.4 K/uL (0.0-0.8) 09/19/17 08:24 Eos # (Auto) 0.1 K/uL (0.0-0.7) 09/19/17 08:24 Baso # (Auto) 0.0 K/uL (0.0-0.2) 09/19/17 08:24 PT 10.9 SECONDS (9.7-12.2) 09/18/17 09:24 INR 1.0 09/18/17 09:24 APTT 29 SECONDS (21-34) 09/18/17 09:24 Sodium 135 mmol/L (132-148) 09/19/17 08:24 Potassium 4.0 mmol/L (3.6-5.2) 09/19/17 08:24 Chloride 99 mmol/L (98-107) 09/19/17 08:24 Carbon Dioxide 26 mmol/L (22-30) 09/19/17 08:24 Anion Gap 14 (10-20) 09/19/17 08:24 BUN 6 mg/dL (7-17) L 09/19/17 08:24 Creatinine 0.6 mg/dL (0.7-1.2) L 09/19/17 08:24 Est GFR ( Amer) > 60 09/19/17 08:24 Est GFR (Non-Af Amer) > 60 09/19/17 08:24 POC Glucose (mg/dL) 341 mg/dL (65-110) H 09/19/17 11:19 Random Glucose 253 mg/dL (65-105) H 09/19/17 08:24 Hemoglobin A1c 11.6 % (4.2-6.5) H 09/18/17 07:59 Calcium 9.1 mg/dl (8.6-10.4) 09/19/17 08:24 Total Bilirubin 0.6 mg/dL (0.2-1.3) 09/19/17 08:24 AST 16 U/L (14-36) 09/19/17 08:24 ALT 20 U/L (9-52) 09/19/17 08:24 Alkaline Phosphatase 48 U/L (38-126) 09/19/17 08:24 Total Protein 6.4 g/dL (6.3-8.3) 09/19/17 08:24 Albumin 3.6 g/dL (3.5-5.0) 09/19/17 08:24 Globulin 2.8 gm/dL (2.2-3.9) 09/19/17 08:24 Albumin/Globulin Ratio 1.3 (1.0-2.1) 09/19/17 08:24 Triglycerides 231 mg/dL (0-149) H 09/19/17 08:24 Cholesterol 159 mg/dL (0-199) 09/19/17 08:24 LDL Cholesterol Direct 101 mg/dL (0-129) 09/19/17 08:24 HDL Cholesterol 34 mg/dL (30-70) 09/19/17 08:24 TSH 3rd Generation 2.72 mIU/L (0.46-4.68) 09/18/17 19:42 Urine Color Straw (YELLOW) 09/18/17 01:40 Urine Clarity Hazy (Clear) 09/18/17 01:40 Urine pH 6.0 (5.0-8.0) 09/18/17 01:40 Ur Specific Willis 1.028 (1.003-1.030) 09/18/17 01:40 Urine Protein Negative mg/dL (NEGATIVE) 09/18/17 01:40 Urine Glucose (UA) 3+ mg/dL (Normal) H 09/18/17 01:40 Urine Ketones Negative mg/dL (NEGATIVE) 09/18/17 01:40 Urine Blood Negative (NEGATIVE) 09/18/17 01:40 Urine Nitrate Negative (NEGATIVE) 09/18/17 01:40 Urine Bilirubin Negative (NEGATIVE) 09/18/17 01:40 Urine Urobilinogen Normal mg/dL (0.2-1.0) 09/18/17 01:40 Ur Leukocyte Esterase Neg Trey/uL (Negative) 09/18/17 01:40 Urine WBC (Auto) 13 /hpf (0-5) H 09/18/17 01:40 Urine RBC (Auto) 2 /hpf (0-3) 09/18/17 01:40 Ur Squamous Epith Cells 9 /hpf (0-5) H 09/18/17 01:40 Ur Random Creatinine 68.6 mg/dL 09/18/17 22:32 Attending/Attestation - Attestation I have personally seen and examined this patient.: Yes I have fully participated in the care of the patient.: Yes I have reviewed all pertinent clinical information, including history, physical exam and plan: Yes Notes (Text): 09/19/17 18:16 Patient was seen and examined at 11:45 AM with present. Exam, assessment and plan, and discharge instructions were gone over with the resident. Discharge instructions were gone over by me with both patient and . Explaine to patient and the timing of when to take medications: Bactrim DS 1 tablet at 8 AM and 8 PM (breakfast and dinner) Florastor 1 tablet at 10 AM and 6 PM Metformin 1 tablet at 8 AM and 8 PM (breakfast and dinner) Lisinopril 1 tablet at 2 PM Atorvastatin 1 tablet at 8 PM (dinner) Went over diet and exercise Went the importance of follow up with Dr. Garcia after finishing the Bactrim and obtaining Primary Care Physician (recommended Dr. Saji Salazar). Jake Doll D.O.
[2017-09-19] MEDS: Saccharomyces Boulardi 250 mg Cap PO SCH (09:27)
[2017-09-19] MEDS ORDERED: Pneumococcal 23-Valent Vaccine IM ONE (14:00)
--- NOTE | 2017-09-21 12:12 | CARD ---
APPROVED REPORT EKG Measurement Heart [id number] CT 170P54 [id number] <Conclusion> Normal sinus rhythm Low voltage QRS Borderline ECG
== END 2017-09-19 15:30 | disposition home or self-care (01) ==
LOC: C.ER 23:12 → C.9E 09-18 06:13 → C.6T 09-18 13:35
PROVIDERS: ADMIT Internal Medicine; ATTEND Internal Medicine
DX: L03.315 Cellulitis of perineum (principal); E11.65 Type 2 diabetes mellitus with hyperglycemia; E78.1 Pure hyperglyceridemia
CPT/HCPCS: 36415; 71046; 74177; 80053; 80061; 81001; 82570; 82948; 83036; 84443; 85025; 85610; 85730; 87070; 87181; 96361; 96365; 96366; 96375; 96376; 99285; G0378; J1200; J7030; J7060; J7120; Q9967

== ENCOUNTER 2017-09-26 00:07 | Emergency (ER) | payer MEDICAID ==
[2017-09-26] MEDS ORDERED: Sodium Chloride 0.9% 1,000 ML ONE (00:30)
[2017-09-26] MEDS ORDERED: DiphenhydrAMINE 50 mg/ml Inj ONE (00:30)
[2017-09-26] MEDS ORDERED: MethylPREDNISolone 40 mg Vial IVP STA (00:34)
[2017-09-26] MEDS ORDERED: Sodium Chloride 0.9% 1,000 ML IV ONE (00:36)
[2017-09-26] MEDS ORDERED: DiphenhydrAMINE 50 mg/ml Inj IVP STA (00:37)
--- NOTE | 2017-09-26 00:37 | C.PDOC ---
History Of Present Illness 32 year old female presents to the ED for evaluation of worsening rash for the past 7 days. Patient was initially seen by me on 09/18/17 for cellulitic rash, perirectal abscess and new onset DM that was seen that day. Patient was admitted to the hospital and recently D/C this Wednesday. Patient was D/C with prescriptions for Metformin 500 mg twice a day, Atorvastatin, Lisinopril and Bactrim daily. Patient reports her rash began last night and for the pasy 24 hours has been increasingly worsening. Patient denies SOB, trouble breathing, trouble swallowing, lip swelling, tongue swelling, angioedema. Time Seen by Provider: 09/26/17 00:33 Chief Complaint (Nursing): Abnormal Skin Integrity History Per: Patient History/Exam Limitations: no limitations Onset/Duration Of Symptoms: Days (7) Current Symptoms Are (Timing): Still Present Location Of Injury: Right: Arm, Chest, Leg, Left: Arm, Chest, Leg Quality Of Symptoms: Itching Recent travel outside of the [place]: No Additional History Per: Patient Past Medical History Reviewed: Historical Data, Nursing Documentation, Vital Signs Vital Signs: Last Vital Signs Temp 98 F 09/26/17 02:22 Pulse 80 09/26/17 02:22 Resp 16 09/26/17 02:22 BP 120/80 09/26/17 02:22 Pulse Ox 98 09/26/17 06:37 - Medical History PMH: Diabetes, HTN, Hypercholesterolemia Surgical History: No Surg Hx Family History: States: Diabetes - Social History Hx Alcohol Use: No Hx Substance Use: No - Immunization History Hx Tetanus Toxoid Vaccination: No Hx Influenza Vaccination: No Hx Pneumococcal Vaccination: No Review Of Systems Constitutional: Negative for: Fever, Chills Cardiovascular: Negative for: Chest Pain, Palpitations Respiratory: Negative for: Cough, Shortness of Breath Gastrointestinal: Negative for: Nausea, Vomiting, Abdominal Pain Skin: Positive for: Rash Neurological: Negative for: Weakness, Numbness Physical Exam - Physical Exam Appears: Non-toxic, No Acute Distress Skin: Warm, Dry, Rash (full body, durg reaction) Head: Atraumatic, Normacephalic Eye(s): bilateral: Normal Inspection, PERRL, EOMI Ear(s): Bilateral: Normal Nose: Normal Oral Mucosa: Moist Tongue: Normal Appearing, No Swelling Lips: Normal Appearing, No Swelling Teeth: Normal Dentition Throat: Normal, No Erythema, No Exudate Neck: Normal ROM, Supple Chest: Symmetrical Cardiovascular: Rhythm Regular Respiratory: Normal Breath Sounds, No Rales, No Rhonchi, No Wheezing Gastrointestinal/Abdominal: Soft, No Tenderness, No Guarding, No Rebound Back: Normal Inspection Extremity: Normal ROM, No Tenderness, No Swelling Extremity: Bilateral: Atraumatic, No Pedal Edema, Normal Color And Temperature, Normal ROM Neurological/Psych: Oriented x3, Normal Speech Gait: Steady ED Course And Treatment O2 Sat by Pulse Oximetry: 98 (ON RA) Pulse Ox Interpretation: Normal Medical Decision Making Medical Decision Making: Impression: allergic reaction Plan: * Benadryl 50 mg IVP * Pepcid 20 mg IVP * Solumedrol 125 mg IVP * IV fluids Patient was advised to stop taking her bactrim, atorvastatin andf lisinopril due to possible allergic reaction. Disposition Counseled Patient/Family Regarding: Diagnosis, Need For Followup - Disposition Referrals: [facility] [Outside] [facility] [Outside] [facility] [Outside] Indira Villarreal MD [Staff Provider] - Disposition: HOME/ ROUTINE Disposition Time: 02:02 Condition: GOOD Additional Instructions: return if symptoms of allergic reaction worsen . Prescriptions: DiphenhydrAMINE [Benadryl] 25 mg PO Q6 PRN 5 Days #15 cap PRN Reason: Allergy Symptoms Famotidine [Pepcid] 40 mg PO DAILY 5 Days #5 tablet Prednisone 50 mg PO DAILY 5 Days #5 tablet Instructions: Hives (DC) Forms: [employer] ([place]) - Clinical Impression Clinical Impression: Urticaria, Allergic reaction caused by a drug - Scribe Statement The provider has reviewed the documentation as recorded by the Scribe Mendoza Buck All medical record entries made by the Scribe were at my direction and personally dictated by me. I have reviewed the chart and agree that the record accurately reflects my personal performance of the history, physical exam, medical decision making, and the department course for this patient. I have also personally directed, reviewed, and agree with the discharge instructions and disposition.
[2017-09-26 02:25] VITALS: BP 120/80; PULSE 80; RESP 16; TEMP 98
[2017-09-26 06:37] VITALS: O2SAT 98
== END 2017-09-26 02:24 | disposition home or self-care (01) ==
LOC: C.ER 00:07
DX: L50.0 Allergic urticaria (principal); T50.995A Adverse effect of other drugs, medicaments and biological substances, initial encounter; Y92.89 Other specified places as the place of occurrence of the external cause
CPT/HCPCS: 96374; 96375; 99283; J1200; J2920; J7030

== ENCOUNTER 2018-01-25 18:26 | Emergency (ER) | payer MEDICAID ==
[2018-01-25] MEDS ORDERED: Tmp-Smz 800 mg-160 mg DS Tab PO STA (20:41)
[2018-01-25] MEDS ORDERED: Tmp-Smz 800 mg-160 mg DS Tab ONE (20:51)
[2018-01-25 20:59] VITALS: BP 111/78; PULSE 79; TEMP 98.2; O2SAT 97
--- NOTE | 2018-01-25 21:29 | C.PDOC ---
History Of Present Illness 32 year old female presents to the ED c/o painful lump to her left inguinal area for the past 2 days. Patient denies injury, fall, trauma, fever, chills, nausea, vomit, dyauria, hematuria, vaginal bleeding, vaginal discharge. Time Seen by Provider: 01/25/18 20:26 Chief Complaint (Nursing): Abnormal Skin Integrity History Per: Patient History/Exam Limitations: no limitations Onset/Duration Of Symptoms: Days (2) Current Symptoms Are (Timing): Still Present Location Of Injury: Left: Leg Quality Of Symptoms: Painful, Swollen Recent travel outside of the [place]: No Additional History Per: Patient Past Medical History Reviewed: Historical Data, Nursing Documentation, Vital Signs Vital Signs: Last Vital Signs Temp 98.2 F 01/25/18 20:59 Pulse 79 01/25/18 20:59 Resp BP 111/78 01/25/18 20:59 Pulse Ox 97 01/25/18 20:59 - Medical History PMH: Diabetes, HTN, Hypercholesterolemia Surgical History: No Surg Hx Family History: States: Unknown Family Hx, Diabetes - Social History Hx Alcohol Use: No Hx Substance Use: No - Immunization History Hx Tetanus Toxoid Vaccination: No Hx Influenza Vaccination: No Hx Pneumococcal Vaccination: No Review Of Systems Constitutional: Negative for: Fever, Chills Cardiovascular: Negative for: Chest Pain Respiratory: Negative for: Shortness of Breath Gastrointestinal: Negative for: Nausea, Vomiting, Abdominal Pain Genitourinary: Negative for: Dysuria, Hematuria, Vaginal Discharge, Vaginal Bleeding Musculoskeletal: Positive for: Leg Pain Skin: Negative for: Rash Neurological: Negative for: Weakness, Numbness Physical Exam - Physical Exam Appears: Non-toxic, No Acute Distress Skin: Normal Color, Warm, Dry Head: Atraumatic, Normacephalic Eye(s): bilateral: Normal Inspection Neck: Normal ROM, Supple Pelvic: Other (3x4 cm erythematous, tender, indurated mass to the left perineal area. Non fluctuant, no active drainage, no labia involvement) Extremity: Normal ROM, No Tenderness, No Swelling Neurological/Psych: Oriented x3, Normal Speech, Normal Cognition Gait: Steady ED Course And Treatment O2 Sat by Pulse Oximetry: 97 (ON RA) Pulse Ox Interpretation: Normal Progress Note: Plan: - Bactrim 1 tab PO. - Motrin 800 mg PO. - Keflex 500 mg PO. Patient was informed that no I&D was necessary at this time. Patient was given antibiotics while at the ED and was told to come back in 2 days for ev aluation. Disposition Counseled Patient/Family Regarding: Diagnosis, Need For Followup, Rx Given - Disposition Referrals: [facility] at [facility] [Outside] Disposition: HOME/ ROUTINE Disposition Time: 21:26 Condition: STABLE Additional Instructions: WOUND CHECK IN 2 DAYS TAKE ALL MEDICATIONS DIRECTED RETURN TO ER IF DRAINING, MODERATE PAIN OR WORSE Prescriptions: Cephalexin [cephalexin] 1,000 mg PO BID #28 cap Ibuprofen [Motrin Tab] 800 mg PO QID #20 tab Sulfamethoxazole/Trimethoprim [Bactrim DS 800 mg-160 mg] 1 tab PO BID #14 tab Instructions: Boil (DC) Forms: [employer] ([place]) - Clinical Impression Clinical Impression: Perineal abscess, superficial - PA / [employer] / Resident Statement MD/DO has reviewed & agrees with the documentation as recorded. - Scribe Statement The provider has reviewed the documentation as recorded by the Scribe Mendoza Buck All medical record entries made by the Scribe were at my direction and personally dictated by me. I have reviewed the chart and agree that the record accurately reflects my personal performance of the history, physical exam, medical decision making, and the department course for this patient. I have also personally directed, reviewed, and agree with the discharge instructions and disposition.
== END 2018-01-25 21:41 | disposition home or self-care (01) ==
LOC: C.ER 18:26
DX: L02.215 Cutaneous abscess of perineum (principal)